=== PATIENT | female | born 1955 | race Caucasian/White ===

== ENCOUNTER 2020-02-29 12:39 | Emergency (ER) | payer OTHER, SELFPAY ==
--- NOTE | ~2020-02-29 | US_ITS ---
EXAMINATION: US venous doppler LE RT DATE: 02/29/2020 13:49 INDICATION: Right lower limb pain. TECHNIQUE: Grayscale ultrasound images without and with compression and Doppler ultrasound images of the right lower extremity veins were obtained. COMPARISON: None. FINDINGS: The visualized portions of right common femoral vein, profunda (deep) femoral vein, femoral vein, pop liteal vein, peroneal veins, posterior tibial veins, and greater saphenous vein outflow are patent. IMPRESSION: 1. No deep venous thrombosis. Reviewed, dictated and finalized at location A.
[2020-02-29 12:47] VITALS: BP 146/70; PULSE 84; RESP 18; TEMP 36.6; O2SAT 100
--- NOTE | 2020-02-29 13:11 | PC.NURSE ---
ERP at bedside.
--- NOTE | 2020-02-29 13:22 | ED.GENADULT ---
HPI - General Adult General Chief complaint: Extremity Injury, Lower <RENALDO Calle Last Filed: 02/29/20 14:32> Stated complaint: right knee injury <RENALDO Calle Last Filed: 02/29/20 14:32> Time Seen by Provider: 02/29/20 12:55 <RENALDO Calle Last Filed: 02/29/20 14:32> Source: patient <RENALDO Calle Last Filed: 02/29/20 14:32> Mode of arrival: ambulatory <RENALDO Calle Last Filed: 02/29/20 14:32> Limitations: no limitations <RENALDO Calle Last Filed: 02/29/20 14:32> History of Present Illness HPI narrative: Patient is a 64-year-old female who presents with right leg pain noting that she has sat in the chair with the back of her right knee against a metal bar and then has since had moderate aching pain at this location that radiates up and down the leg patient denies other injury or trauma or similar occurrence in the past patient on arrival to emergency department is in no distress and presents per ambulance has not had anything for her symptoms denies reticular symptoms or paresthesias <RENALDO Calle Last Filed: 02/29/20 14:32> Related Data Home medications: Home Medications Medication Instructions Recorded Confirmed aspirin 81 mg chewable tablet 81 mg PO DAILY 10/14/19 irbesartan 75 mg tablet 75 mg PO DAILY 10/14/19 linaclotide 145 mcg capsule 145 mcg PO DAILY 10/14/19 nortriptyline 25 mg capsule 25 mg PO DAILY 10/14/19 Ca cmb no.5-[id number]-aloe tablet PO 02/29/20 [Vitamin D-3 with Aloe] buspirone 7.5 mg PO BID 02/29/20 glucos sul [id number]-[id number]-C-Mn cap PO 02/29/20 [Glucosamine Chondroitin] prednisone 10 mg PO BID 02/29/20 <RENALDO Calle Last Filed: 02/29/20 14:32> Allergies/adverse reactions: Allergies Allergy/AdvReac Type Severity Reaction Status Date / Time methylprednisolone Allergy Mild Flushing Verified 01/07/17 11:01 No Known Allergies Allergy Mild Verified 01/08/19 18:33 hyoscyamine Allergy Unknown Verified 07/26/10 11:56 <Finn Willard PA-C - Last Filed: 02/29/20 14:32> Review of Systems Review of Systems: All systems reviewed & are unremarkable except as noted in HPI and below <Finn Willard PA-C - Last Filed: 02/29/20 14:32> PMFSH Past Medical History Medical History: Medical History Left hip pain Numbness of tongue Wellness examination <Finn Willard PA-C - Last Filed: 02/29/20 14:32> Family History Family History: Family History (Updated 04/13/16 @ 23:19 by DOCTOR UNKNOWN) Sibling Family history of thyroid disease Hypertension Family history of coronary artery disease Mother Hypertension Family history of heart disease in male family member before age 55 Family history of coronary artery disease Father Family history of chronic obstructive pulmonary disease Malignant neoplasm of prostate Family history of diabetes mellitus in first degree relative Hypertension Family history of coronary artery disease Other Family history of cardiovascular disease <Finn Willard PA-C - Last Filed: 02/29/20 14:32> Social History Social History: Social History Smoking status: Never smoker Alcohol intake: never Gender identity (if verbalized by the patient): Female <Finn Willard PA-C - Last Filed: 02/29/20 14:32> Exam Narrative: Exam Narrative: GENERAL: Well-appearing, well-nourished, and in no acute distress. HEAD: Normocephalic, atraumatic. EYES: PERRLA and EOMI. ENT: Nares clear, no rhinorrhea or epistaxis. Mucous membranes moist. EXTREMITIES: Normal range of motion. No edema. Tenderness of the posterior right knee no deformities noted SKIN: Warm, dry, no rash. NEURO: No focal deficits. Alert and oriented x3. Neurovascularly intact. Capillary refill less t
[2020-02-29 14:43] VITALS: BP 138/75; PULSE 78; RESP 16; O2SAT 97
== END 2020-02-29 14:44 | disposition home or self-care (01) ==
PROVIDERS: Emergency Provider Emergency Medicine; PCP Family Medicine
DX: M79.604 Pain in right leg (principal)
CPT/HCPCS: 93971; 99284

== ENCOUNTER → 2021-01-13 06:59 | Outpatient (CLI) | payer MEDICARE, SELFPAY ==
[2021-01-13 19:12] LABS: SARS-CoV-2 RNA PCR Positive
== END ==
PROVIDERS: PCP Family Medicine
DX: U07.1 COVID-19 (principal)
CPT/HCPCS: C9803; U0003; U0005

== ENCOUNTER 2021-01-14 08:03 | Inpatient (IN) | payer MEDICARE, SELFPAY ==
[2021-01-14] VITALS (26 sets, daily range): BP systolic 88–139; BP diastolic 35–81; PULSE 76–112; RESP 18–20; TEMP 36.2–39.4; O2SAT 90–97; BMI 39.9
--- NOTE | ~2021-01-14 | CT_ITS ---
EXAMINATION: CT abdomen pelvis w con DATE: 01/14/2021 10:00 INDICATION: Elevated serum lipase. Nausea, diarrhea. Cough. TECHNIQUE: Computed tomography (CT) of the abdomen and pelvis was performed with 100 cc Omnipaque 350 intravenous contrast. Automated exposure control and iterative reconstruction technique were employe d. Exam dose: 1628.10 mGy-cm total exam DLP. COMPARISON: 01/19/2012 CT abdomen pelvis FINDINGS: There are extensive patchy bilateral groundglass pulmonary infiltrates involving all lobes. Diffuse hepatic steatosis. Status post cholecystectomy. No space-occupying mass lesion of the liver, spleen, pancreas, and adrenal glands. 7 mm upper pole le ft renal cyst. The kidneys are otherwise unremarkable. No urinary tract calculus or hydroureteronephr osis. Normal caliber of the abdominal aorta. No intraperitoneal or retroperitoneal or pelvic mass lesion or adenopathy or ascites. The uterus, adnexal areas and urinary bladder are unremarkable. Diverticulosis of the sigmoid colon; no CT evidence of diverticulitis. There are fluid levels of the colon, an abnormal finding, consistent with clinical presentation of diarrhea. No bowel obstruction, bowel wall thickening, pneumatosis or intraperitoneal free air. Fat-containing umbilical hernia. No suspicious osteolytic or osteoblastic lesions. Transitional lumbosacral vertebra. IMPRESSION: Hepatic steatosis Status post cholecystectomy Diverticulosis of the sigmoid colon; no CT evidence of diverticulitis Reviewed, dictated and finalized at [facility]. Reviewed, dictated and finalized at location A.
--- NOTE | ~2021-01-14 | XR_ITS ---
XR chest 1V portable DATE: 01/14/2021 08:40 INDICATION: Cough. Nausea, diarrhea. TECHNIQUE: Portable AP chest on 01/14/2021 at 0838 hours COMPARISON: 12/29/2015 PA and lateral chest FINDINGS: There are patchy bilateral pulmonary infiltrates primarily in the mid and lower lung zones suggesting bilateral pneumonia. Cardiomegaly. No pleural effusion is evident. Diffuse osteopenia. Degenerative spurring of the thoracic spine. IMPRESSION: Patchy consolidating infiltrates involving particularly the mid and lower lung zones, mos t consistent with bilateral pneumonia Reviewed, dictated and finalized at location A. IMPRESSION: Patchy consolidating infiltrates involving particularly the mid and lower lung zones, most consistent with bilateral pneumonia
--- NOTE | 2021-01-14 08:24 | ECG_ITS ---
Measurements Intervals [place] Rate: 89 P: 68 PA: 157 QRS: 5 QRSD: 90 T: 50 QT: 355 QTc: 433 Interpretive Statements SINUS RHYTHM LOW QRS VOLTAGE IN PRECORDIAL LEADS BORDERLINE ECG Electronically Signed On 01-14-2021 17:02:38 CDT by Antonio Schwartz D.O.
--- NOTE | 2021-01-14 08:36 | ED.GENADULT ---
HPI - General Adult General Chief complaint: Abdominal Pain Stated complaint: nausea/vomiting/gas Time Seen by Provider: 01/14/21 08:10 Source: patient, RN notes reviewed and old records reviewed Mode of arrival: ambulatory Limitations: no limitations History of Present Illness HPI narrative: This is a 65 year old female who presents for evaluation of nausea, cough, fatigue and diarrhea. She states she started having symptoms at least 14 days ago. She reports having nonbloody diarrhea just about daily. She states it is decreasing in amount. She reports nausea and dry heaves, but she denies abdominal pain or fever. She has a nonproductive cough but denies chest pain or sob. She denies lightheadedness or dizziness. She has fatigue. She was tested for covid yesterday and it has returned back today positive. she states she came to ER because her symptoms are not getting better. She denies taking antibiotics recently. Related Data Home Medications Medication Instructions Recorded Confirmed aspirin 81 mg chewable tablet 81 mg PO DAILY 10/14/19 01/14/21 Ca cmb no.0-I5-H-[id number]-G37-aloe 1 tablet PO DAILY 02/29/20 01/14/21 [Vitamin D-3 with Aloe] glucos sul 0KZj-[id number]-[id number]-C-Mn 1 cap PO BID 02/29/20 01/14/21 [Glucosamine Chondroitin] ascorbic acid (vitamin C) 1 g PO DAILY 01/14/21 01/14/21 irbesartan 37.5 mg PO DAILY 01/14/21 01/14/21 zinc sulfate 50 mg PO DAILY 01/14/21 01/14/21 Allergies Allergy/AdvReac Type Severity Reaction Status Date / Time hyoscyamine Allergy Mild nausea Verified 01/14/21 12:27 methylprednisolone Allergy Mild Flushing Verified 01/14/21 12:27 Review of Systems Review of Systems: All systems reviewed & are unremarkable except as noted in HPI and below PMFSH Past Medical History Medical History (Updated 01/14/21 @ 17:46 by Carla Frank MD) Anxiety Depression Essential hypertension Fatty liver History of MRSA infection Skin and soft tissue infection. Impaired fasting glucose Recent hemoglobin A1c of 5.4%. Irritable bowel syndrome Osteoarthritis Recurrent urinary tract infection Shingles (~2014) Surgical History Surgical History (Updated 01/14/21 @ 16:25 by Farheen Fofana PA-C) History of cardiac catheterization (~2004) Clear coronary arteries per patient report. History of cholecystectomy History of tonsillectomy Family History Family History Sibling Family history of thyroid disease Hypertension Family history of coronary artery disease Mother Hypertension Family history of heart disease in male family member before age 55 Family history of coronary artery disease Father Family history of chronic obstructive pulmonary disease Malignant neoplasm of prostate Family history of diabetes mellitus in first degree relative Hypertension Family history of coronary artery disease Other Family history of cardiovascular disease Social History Social History (Updated 01/14/21 @ 16:23 by Farheen Fofana PA-C) Social History: The patient is and lives with her in [place]. Lifelong nonsmoker. No alcohol or illicit substance abuse. She designates her Uriah as her surrogate decision maker and she wishes to be a full code. Exam Const: General: no acute distress, alert and ill appearing Orientation/consciousness: patient oriented x3 Eyes: EOM: EOMs intact bilaterally Chest: Chest palpation & inspection: normal inspection of the chest Resp: Effort & Inspection: normal respiratory effort and no retractions Auscultation: clear to auscultation bilaterally Cardio: Rate: regular rate Rhythm: regular rhythm Heart sounds: no murmurs GI: GI Palp: Yes Soft to palpation, No Tenderness to palpation present (GI) and No Guarding due to palpation present (GI) Auscultation: normal bowel sounds Neuro: General: patient oriented x3, moves all extremities and CN's II-X
[2021-01-14 08:38] LABS: Basophils Percent Auto 0.3 % (0.2-1.2); Hematocrit 45.2 % (37.0-47.0); Hemoglobin 14.8 g/dL (12.0-15.0); Immature Granulocyte Absolute 0.04 K/mm3 (0.00-0.031); Immature Granulocyte Percent A 0.6 % (0-0.5); Lymphocytes Absolute Auto 1.61 K/mm3 (0.9-3.2); Lymphocytes Percent Auto 23.1 % (18.3-44.2); Mean Corpuscular HGB Conc 32.7 g/dl (32-36); Mean Corpuscular Hemoglobin 29.8 pg (26-34); Mean Corpuscular Volume 91.1 fl (80-100); Mean Platelet Volume 9.5 fl (7.4-10.4); Monocytes Absolute Auto 0.4 K/mm3 (0.1-0.6); Monocytes Percent Auto 5.7 % (2.6-8.5); Neutrophils Absolute Auto 4.9 K/mm3 (1.3-6.7); Neutrophils Percent Auto 70.3 % (45.5-73.1); Platelet Count Result 229 k/mm3 (150-375); Red Blood Count 4.96 M/mm3 (4.2-5.4); Red Cell Distribution Width 14.1 % (11.5-14.5)
[2021-01-14] MEDS: ONDANSETRON INJ 4 MG/2 ML VIAL IV PUSH (08:41)
[2021-01-14] MEDS: LACTATED RINGERS 1,000 ML 999 ML IV CONT ×2 (08:42→09:15)
[2021-01-14 08:48] LABS: Alanine Aminotransferase 64 U/L (4-35); Albumin Level 4.2 g/dL (3.5-5.1); Alkaline Phosphatase 57 U/L (38-126); Anion Gap 3 mmol/L (8-16); Aspartate Amino Transferase 110 U/L (14-36); Bilirubin,Total 0.5 mg/dL (0.2-1.3); Blood Urea Nitrogen 12 mg/dL (7-17); Calcium 8.5 mg/dL (8.4-10.2); Carbon Dioxide 30 mmol/L (22-30); Chloride 102 mmol/L (98-107); Estimated CRCL calculation 55 ml/min; Estimated Glomerular Filt Rate 56; Glucose 126 mg/dL (65-105); Lipase 693 U/L (23-300); Sodium 135 mmol/L (137-145)
--- NOTE | 2021-01-14 11:13 | PC.NURSE ---
pt ambulated in room, c/o weakness. pulse ox 82-92%.
[2021-01-14 11:54] LABS: INR 0.9; Prothrombin Time 13.1 Seconds (11.1-14.7)
[2021-01-14] MEDS: SODIUM CHLORIDE 0.9% IV 1,000 ML 100 ML IV CONT ×2 (12:10→20:30)
--- NOTE | 2021-01-14 12:13 | ADMGEN ---
This patient, Estella Mercado, was admitted to [address] [place] [address] Room 325-01. Patient/family oriented to hospital policies and general routines including ID bracelet, bed and alarms, visiting hours, pain management, procedures, bathroom and other care routines, personal items, smoking policy, room service/diet, and visiting hours. Information on how to activate the Rapid Response Team has been discussed. Patient/Family are encouraged to report perceived risks to care and to ask questions if they do not understand what they are told or what they should do.
[2021-01-14] MEDS: REMDESIVIR 200 MG/NS 250 ML 200 MG/250 ML BAG 250 MG IVPB (14:32)
--- NOTE | 2021-01-14 16:00 | PM.IMHP ---
H&P: HPI History of Present Illness Date/Time: 01/14/21 16:00 Chief Complaint: Multiple complaints. Narrative: This is a 65-year-old female with hypertension, GERD, depression, and irritable bowel syndrome presented to the emergency department earlier today via private vehicle from home with multiple complaints. She has not been feeling well for 10 or more days with multiple symptoms including fatigue, nausea, decreased appetite, dry heaves, diarrhea, and nonproductive cough. More recently she started to run a fever, almost up to 103? for which she has been taking Tylenol at home. It is my understanding that she was exposed to COVID-19 on Saturday and she was found to be positive for such after being tested yesterday. In the emergency department today she was found to have extensive bilateral infiltrates, likely due to COVID pneumonia, and she also appears dehydrated. At rest she has no oxygen requirement however she reportedly had a low SpO2 with ambulation and she is being admitted in this setting. After receiving IV fluids and since she has defervesced she is feeling quite a bit better. She denies headache, sinus congestion, rhinorrhea, otalgia, odynophagia, anosmia, chest pain, pleuritic pain, shortness of breath, abdominal pain, and dysuria. Review of Systems Review of Systems: Narrative: Twelve systems were reviewed with pertinent positives and negatives as per HPI. No syncope or near syncope. She denies chest in pleuritic pain. No orthopnea, PND, or lower extremity edema. She is having about 4 to 5 loose stools a day but that seems to have tapered off over the past couple of days. Her appetite remains poor. She has had ?issues with my taste buds? for many years and that has not changed. No dysuria. Except as documented, all other systems were reviewed and are negative. [facility] Past Medical History Medical History Anxiety Depression Essential hypertension Fatty liver History of MRSA infection Skin and soft tissue infection. Impaired fasting glucose Recent hemoglobin A1c of 5.4%. Irritable bowel syndrome Osteoarthritis Recurrent urinary tract infection Shingles (~2014) Surgical History Surgical History History of cardiac catheterization (~2004) Clear coronary arteries per patient report. History of cholecystectomy History of tonsillectomy Family History Family History Sibling Family history of thyroid disease Hypertension Family history of coronary artery disease Mother Hypertension Family history of heart disease in male family member before age 55 Family history of coronary artery disease Father Family history of chronic obstructive pulmonary disease Malignant neoplasm of prostate Family history of diabetes mellitus in first degree relative Hypertension Family history of coronary artery disease Other Family history of cardiovascular disease Social History Social History Social History: The patient is and lives with her in [place]. Lifelong nonsmoker. No alcohol or illicit substance abuse. She designates her Uriah as her surrogate decision maker and she wishes to be a full code. Meds Home Medications and Allergies Home Medications Medication Instructions Recorded Confirmed Type aspirin 81 mg chewable tablet 81 mg PO DAILY 10/14/19 01/14/21 History Ca cmb no.8-L4-L-5-US-H29-aloe 1 tablet PO DAILY 02/29/20 01/14/21 History [Vitamin D-3 with Aloe] glucos sul [id number]-C-Mn 1 cap PO BID 02/29/20 01/14/21 History [Glucosamine Chondroitin] ibuprofen [IBU] 600 mg PO QID PRN #7 tablet 02/29/20 01/14/21 Rx buspirone 7.5 mg tablet 7.5 mg PO BID #180 tablet 04/20/20 01/14/21 Rx linaclotide 145 mcg capsule 145 mcg PO D
[2021-01-14] MEDS: busPIRone HCL 2.5 MG TABLET PO (18:10)
[2021-01-14] MEDS: busPIRone HCL 5 MG TABLET PO (18:10)
[2021-01-14] MEDS: IBUPROFEN 600 MG TABLET PO (18:44)
[2021-01-14] MEDS: FAMOTIDINE 20 MG TABLET PO (20:30)
[2021-01-15] VITALS (14 sets, daily range): BP systolic 101–136; BP diastolic 54–66; PULSE 76–98; RESP 18–22; TEMP 36.2–37.7; O2SAT 87–93
[2021-01-15] MEDS: ONDANSETRON INJ 4 MG/2 ML VIAL IV PUSH ×2 (00:21→08:34)
[2021-01-15] MEDS: NORTRIPTYLINE HCL 25 MG CAPSULE PO ×2 (01:37→21:20)
[2021-01-15 05:57] LABS: Basophils Percent Auto 0.2 % (0.2-1.2); Hematocrit 39.1 % (37.0-47.0); Hemoglobin 12.7 g/dL (12.0-15.0); Immature Granulocyte Absolute 0.03 K/mm3 (0.00-0.031); Immature Granulocyte Percent A 0.6 % (0-0.5); Lymphocytes Absolute Auto 1.25 K/mm3 (0.9-3.2); Lymphocytes Percent Auto 25.2 % (18.3-44.2); Mean Corpuscular HGB Conc 32.5 g/dl (32-36); Mean Corpuscular Hemoglobin 29.7 pg (26-34); Mean Corpuscular Volume 91.6 fl (80-100); Mean Platelet Volume 9.4 fl (7.4-10.4); Monocytes Absolute Auto 0.4 K/mm3 (0.1-0.6); Monocytes Percent Auto 7.5 % (2.6-8.5); Neutrophils Absolute Auto 3.3 K/mm3 (1.3-6.7); Neutrophils Percent Auto 66.5 % (45.5-73.1); Platelet Count Result 234 k/mm3 (150-375); Red Blood Count 4.27 M/mm3 (4.2-5.4); Red Cell Distribution Width 14.1 % (11.5-14.5)
[2021-01-15 06:07] LABS: Lactate Dehydrogenase 978 U/L (313-618); Magnesium 1.6 mg/dL (1.6-2.3)
[2021-01-15 06:12] LABS: Alanine Aminotransferase 44 U/L (4-35); Alkaline Phosphatase 43 U/L (38-126); Anion Gap 5 mmol/L (8-16); Aspartate Amino Transferase 77 U/L (14-36); Bilirubin,Total 0.4 mg/dL (0.2-1.3); Blood Urea Nitrogen 10 mg/dL (7-17); Carbon Dioxide 26 mmol/L (22-30); Chloride 107 mmol/L (98-107); Estimated CRCL calculation 77 ml/min; Estimated Glomerular Filt Rate > 60; Glucose 74 mg/dL (65-105); Potassium 3.4 mmol/L (3.4-5.0); Sodium 138 mmol/L (137-145)
[2021-01-15 07:04] LABS: Prothrombin Time 13.3 Seconds (11.1-14.7)
[2021-01-15] MEDS: FAMOTIDINE 20 MG TABLET PO ×2 (08:26→21:20)
[2021-01-15] MEDS: SODIUM CHLORIDE 0.9% IV 1,000 ML 100 ML IV CONT (08:26)
[2021-01-15] MEDS: busPIRone HCL 5 MG TABLET PO ×2 (08:27→17:15)
[2021-01-15] MEDS: busPIRone HCL 2.5 MG TABLET PO ×2 (08:27→17:15)
[2021-01-15] MEDS: ASCORBIC ACID 500 MG TABLET 1000 MG PO (08:27)
[2021-01-15] MEDS: DEXAMETHASONE 2 MG TABLET 6 MG PO (08:28)
[2021-01-15] MEDS: ENOXAPARIN 40 MG/0.4 ML SYRINGE SUB-Q (08:29)
[2021-01-15] MEDS: REMDESIVIR 100 MG/NS 250 ML 100 MG/250 ML BAG 250 MG IVPB (10:31)
[2021-01-15] MEDS: ZINC SULFATE 220 MG CAPSULE PO (10:31)
[2021-01-15] MEDS: ASPIRIN 81 MG CHEWABLE TABLET PO (10:31)
--- NOTE | 2021-01-15 12:34 | PM.IMPN ---
Progress Note: A&P Assessment and Plan (1) Pneumonia due to COVID-19 virus: Code(s): U07.1 - COVID-19; J12.82 - Pneumonia due to coronavirus disease 2018 Status: Acute Assessment and Plan: Continue Remdesivir and dexamethasone Continue to monitor (2) Essential hypertension: Code(s): I10 - Essential (primary) hypertension Status: Acute Assessment and Plan: Continue to monitor patient is on irbesartan (3) Gastro-esophageal reflux disease without esophagitis: Code(s): K21.9 - Gastro-esophageal reflux disease without esophagitis Status: Acute Assessment and Plan: Continue PPI Continue cimetidine (4) Depression: Code(s): F32.9 - Major depressive disorder, single episode, unspecified Status: Acute Assessment and Plan: Continue nortriptyline (5) Anxiety: Code(s): F41.9 - Anxiety disorder, unspecified Status: Acute Assessment and Plan: Continue buspirone (6) Fatty liver: Code(s): K76.0 - Fatty (change of) liver, not elsewhere classified Status: Acute Assessment and Plan: Monitor in the outpatient setting (7) Dehydration: Code(s): E86.0 - Dehydration Status: Acute Assessment and Plan: Gentle hydration Additional Plan The patient presents today with a 10+ day history of multiple symptoms as detailed in HPI. She tested positive for COVID-19 yesterday. Imaging today shows extensive bilateral infiltrates felt to be COVID pneumonia and she has been placed in contact, droplet, and airborne isolation. It is my understanding that she was hypoxic with ambulation emergency department however that is not reflected in the chart. She was started on remdesivir and dexamethasone in the emergency department and I am going to continue with this for now despite no oxygen requirement given the length of her illness and the significant infiltrates on imaging. Continue supportive care with cautious IV fluid rehydration and antiemetics as needed. Antihypertensives on hold as her blood pressures have been soft due to dehydration. The rest of her home medications will be reviewed and resumed as appropriate. LFTs are elevated and are likely due to COVID however she does also have hepatic steatosis noted on imaging today. Check hepatitis panel and monitor. Subjective Date/time seen: 01/15/21 12:34 I was feeling sick Review of Systems Review of Systems: All systems reviewed & are unremarkable except as noted in HPI and below Constitutional: Comments: Fevers chills generalized malaise weakness fatigue for 2 weeks or so Musculoskeletal: Comments: Generalize aches and pains Exam Narrative: Exam Narrative: General: Mildly ill-appearing female supine in bed in no distress. Weight: 100.7 kilograms. BMI: 40.0. HEENT: Pupils reactive. Extraocular motions intact. Tacky mucous membranes. Oropharynx is crowded and poorly visualized. Neck: Supple. Exam difficult due to neck circumference and positioning. No obvious JVD. Respiratory: Respirations are even and nonlabored. She is speaking in full sentences. She has coarse crackles heard anteriorly at the flanks. Occasional dry cough during the interview. Cardiovascular: Regular rate and rhythm with S1-S2. Gastrointestinal: Abdomen is soft, obese, nontender, and nondistended with positive bowel sounds. Skin: Warm and dry. No rash or lesions on limited exam. Extremities: No cyanosis, clubbing, or edema. Radial and pedal pulses intact. Neurological: Alert. Cranial nerves 2-12 are grossly intact. No gross focal deficits to casual conversation. Psychiatric: Appropriate mood and affect. Objective Data Vital Signs Vital Signs: Vital Signs - 24 hr 01/14/21 12:39 01/14/21 16:00 01/14/21 16:05 Temperature 97.6 F 102.9 F H Pulse Rate 104 H 93 104 H Respiratory Rate 18 18 18 Blood Pressure 110/65 122/63 120/63 Pulse Oximetry 92 92 91 01/14/21 16:10 01/14/21
[2021-01-15] MEDS: ACETAMINOPHEN 325 MG TABLET 650 MG PO (22:15)
[2021-01-16 03:56] VITALS: BP 117/51; PULSE 70; RESP 18; TEMP 36.6; O2SAT 91
[2021-01-16 06:43] LABS: Alanine Aminotransferase 40 U/L (4-35); Estimated CRCL calculation 105 ml/min; Estimated Glomerular Filt Rate > 60
[2021-01-16 07:37] LABS: Prothrombin Time 14.2 Seconds (11.1-14.7)
[2021-01-16 08:00] VITALS: BP 125/59; PULSE 78; RESP 16; TEMP 36.1; O2SAT 91
[2021-01-16] MEDS: DEXAMETHASONE 2 MG TABLET 6 MG PO (09:05)
[2021-01-16] MEDS: busPIRone HCL 5 MG TABLET PO ×2 (09:05→17:18)
[2021-01-16] MEDS: ASCORBIC ACID 500 MG TABLET 1000 MG PO (09:05)
[2021-01-16] MEDS: FAMOTIDINE 20 MG TABLET PO ×2 (09:05→20:07)
[2021-01-16] MEDS: ZINC SULFATE 220 MG CAPSULE PO (09:06)
[2021-01-16] MEDS: busPIRone HCL 2.5 MG TABLET PO ×2 (09:06→17:18)
[2021-01-16] MEDS: ENOXAPARIN 40 MG/0.4 ML SYRINGE SUB-Q (09:06)
[2021-01-16] MEDS: ASPIRIN 81 MG CHEWABLE TABLET PO (09:06)
[2021-01-16] MEDS: REMDESIVIR 100 MG/NS 250 ML 100 MG/250 ML BAG 250 MG IVPB (10:47)
[2021-01-16 11:10] LABS: Basophils Percent Auto 0.2 % (0.2-1.2); Hematocrit 42.6 % (37.0-47.0); Hemoglobin 13.9 g/dL (12.0-15.0); Immature Granulocyte Absolute 0.03 K/mm3 (0.00-0.031); Immature Granulocyte Percent A 0.5 % (0-0.5); Lymphocytes Percent Auto 19.7 % (18.3-44.2); Mean Corpuscular HGB Conc 32.6 g/dl (32-36); Mean Corpuscular Hemoglobin 29.7 pg (26-34); Monocytes Absolute Auto 0.6 K/mm3 (0.1-0.6); Monocytes Percent Auto 11.3 % (2.6-8.5); Neutrophils Absolute Auto 3.8 K/mm3 (1.3-6.7); Neutrophils Percent Auto 68.3 % (45.5-73.1); Platelet Count Result 295 k/mm3 (150-375); Red Blood Count 4.68 M/mm3 (4.2-5.4); Red Cell Distribution Width 14.2 % (11.5-14.5); White Blood Count 5.6 K/mm3 (4.5-10.0)
[2021-01-16 11:21] VITALS: BMI 39.9
[2021-01-16 11:21] LABS: Anion Gap 8 mmol/L (8-16); Blood Urea Nitrogen 14 mg/dL (7-17); Calcium 8.9 mg/dL (8.4-10.2); Carbon Dioxide 25 mmol/L (22-30); Chloride 108 mmol/L (98-107); Estimated CRCL calculation 89 ml/min; Estimated Glomerular Filt Rate > 60; Glucose 133 mg/dL (65-105); Potassium 3.6 mmol/L (3.4-5.0); Sodium 141 mmol/L (137-145)
--- NOTE | 2021-01-16 12:19 | PM.IMPN ---
Progress Note: A&P Assessment and Plan (1) Pneumonia due to COVID-19 virus: Code(s): U07.1 - COVID-19; J12.82 - Pneumonia due to coronavirus disease 2018 Status: Acute Assessment and Plan: Continue Remdesivir and dexamethasone Continue to monitor Clinically improved (2) Essential hypertension: Code(s): I10 - Essential (primary) hypertension Status: Acute Assessment and Plan: Continue to monitor patient is on irbesartan (3) Gastro-esophageal reflux disease without esophagitis: Code(s): K21.9 - Gastro-esophageal reflux disease without esophagitis Status: Acute Assessment and Plan: Continue PPI Continue cimetidine (4) Depression: Code(s): F32.9 - Major depressive disorder, single episode, unspecified Status: Acute Assessment and Plan: Continue nortriptyline (5) Anxiety: Code(s): F41.9 - Anxiety disorder, unspecified Status: Acute Assessment and Plan: Continue buspirone (6) Fatty liver: Code(s): K76.0 - Fatty (change of) liver, not elsewhere classified Status: Acute Assessment and Plan: Monitor in the outpatient setting (7) Dehydration: Code(s): E86.0 - Dehydration Status: Acute Assessment and Plan: Gentle hydration Additional Plan The patient presents today with a 10+ day history of multiple symptoms as detailed in HPI. She tested positive for COVID-19 yesterday. Imaging today shows extensive bilateral infiltrates felt to be COVID pneumonia and she has been placed in contact, droplet, and airborne isolation. It is my understanding that she was hypoxic with ambulation emergency department however that is not reflected in the chart. She was started on remdesivir and dexamethasone in the emergency department and I am going to continue with this for now despite no oxygen requirement given the length of her illness and the significant infiltrates on imaging. Continue supportive care with cautious IV fluid rehydration and antiemetics as needed. Antihypertensives on hold as her blood pressures have been soft due to dehydration. The rest of her home medications will be reviewed and resumed as appropriate. LFTs are elevated and are likely due to COVID however she does also have hepatic steatosis noted on imaging today. Check hepatitis panel and monitor. Will increase patient activity to out of bed and to sit on the chair more frequent Subjective Date/time seen: 01/16/21 12:19 I feel much better today Review of Systems Review of Systems: All systems reviewed & are unremarkable except as noted in HPI and below Exam Narrative: Exam Narrative: General: Well appearing female supine in bed in no distress. Weight: 100.7 kilograms. BMI: 40.0. HEENT: Pupils reactive. Extraocular motions intact. Tacky mucous membranes. Oropharynx is crowded and poorly visualized. Neck: Supple. Exam difficult due to neck circumference and positioning. No obvious JVD. Respiratory: Respirations are even and nonlabored. She is speaking in full sentences. She has coarse crackles heard anteriorly at the flanks. Occasional dry cough during the interview. Cardiovascular: Regular rate and rhythm with S1-S2. Gastrointestinal: Abdomen is soft, obese, nontender, and nondistended with positive bowel sounds. Skin: Warm and dry. No rash or lesions on limited exam. Extremities: No cyanosis, clubbing, or edema. Radial and pedal pulses intact. Neurological: Alert. Cranial nerves 2-12 are grossly intact. No gross focal deficits to casual conversation. Psychiatric: Appropriate mood and affect. Objective Data Vital Signs Vital Signs: Vital Signs - 24 hr 01/15/21 19:54 01/15/21 20:00 01/15/21 22:20 Temperature 99.3 F 99.2 F Pulse Rate 84 81 Respiratory Rate 20 18 Blood Pressure 109/59 L 110/59 L Pulse Oximetry 90 90 87 L 01/15/21 22:30 01/15/21 23:44 01/16/21 03:56 Temperature 99.2 F 99.0 F 97.8 F P
[2021-01-16] MEDS: ALBUTEROL SULFATE (*SP) INHALER 6 PUFF INHALATION (15:13)
[2021-01-16 16:00] VITALS: BP 111/69; PULSE 81; RESP 18; TEMP 36.2; O2SAT 90
[2021-01-16 16:35] LABS: Add Urine Microscopic? YES; Appearance Urine Cloudy (Clear); Bacteria Urine 1+ /hpf; Bilirubin Urine Negative (Negative); Blood Urine 3+ (Negative); Color Urine Amber (Yellow); Glucose Urine UA Negative (Negative); Ketones Urine Negative (Negative); Leukocyte Esterase Ur 2+ LEU/UL (NEGATIVE); Mucus Urine Heavy /lpf; Nitrate Urine Positive (Negative); Protein Urine 2+ mg/dL (Negative); RBC Urine >75 /hpf (0-2); Specific Grav Ur 1.029 (1.001-1.035); Squamous Epithelial Cell Urine Many /hpf (Few); WBC Urine >75 /hpf (0-3)
--- NOTE | 2021-01-16 17:49 | PC.NURSE ---
called results of u/a to Dr. Caridad negro recieved for rocephine 1 gram q 24 hours.
--- NOTE | 2021-01-16 17:51 | PC.NURSE ---
[address] Mclean reported pt has blood tinged urine order recieved for u/A
[2021-01-16 20:00] VITALS: BP 114/46; PULSE 77; RESP 18; TEMP 36.4; O2SAT 90
[2021-01-16] MEDS: NORTRIPTYLINE HCL 25 MG CAPSULE PO (20:07)
[2021-01-16] MEDS: ONDANSETRON INJ 4 MG/2 ML VIAL IV PUSH (23:08)
[2021-01-17] VITALS (11 sets, daily range): BP systolic 99–139; BP diastolic 46–66; PULSE 70–74; RESP 16–20; TEMP 36.1–36.6; O2SAT 90–94
[2021-01-17 06:01] LABS: Hematocrit 38.6 % (37.0-47.0); Hemoglobin 12.7 g/dL (12.0-15.0); Mean Corpuscular HGB Conc 32.9 g/dl (32-36); Mean Corpuscular Hemoglobin 29.7 pg (26-34); Mean Corpuscular Volume 90.2 fl (80-100); Mean Platelet Volume 9.6 fl (7.4-10.4); Platelet Count Result 357 k/mm3 (150-375); Red Blood Count 4.28 M/mm3 (4.2-5.4); Red Cell Distribution Width 14.2 % (11.5-14.5); White Blood Count 8.6 K/mm3 (4.5-10.0)
[2021-01-17 06:14] LABS: Alanine Aminotransferase 39 U/L (4-35); Estimated CRCL calculation 89 ml/min; Estimated Glomerular Filt Rate > 60
[2021-01-17 06:19] LABS: INR 1.1; Prothrombin Time 14.5 Seconds (11.1-14.7)
[2021-01-17 06:20] LABS: Anion Gap 0 mmol/L (8-16); Blood Urea Nitrogen 19 mg/dL (7-17); Calcium 8.7 mg/dL (8.4-10.2); Carbon Dioxide 32 mmol/L (22-30); Chloride 108 mmol/L (98-107); Estimated CRCL calculation 89 ml/min; Estimated Glomerular Filt Rate > 60; Glucose 127 mg/dL (65-105); Potassium 4.6 mmol/L (3.4-5.0); Sodium 140 mmol/L (137-145)
[2021-01-17 07:56] LABS: Band Neutrophils Percent 1 % (0-6); Eosinophils Absolute Manual 0.08 K/mm3 (0.02-0.5); Eosinophils Percent Manual 1 % (0-4); Monocytes Absolute Manual 0.77 K/mm3 (0.1-0.90); Monocytes Percent Manual 9 % (3-9); Neutrophils Absolute Manual 7.13 K/mm3 (1.7-7.2); Neutrophils Percent Manual 82 % (46-73); Platelet Estimate Adequate (Adequate); Total Cells Counted 100
[2021-01-17] MEDS: DEXAMETHASONE 2 MG TABLET 6 MG PO (08:56)
[2021-01-17] MEDS: busPIRone HCL 5 MG TABLET PO ×2 (08:57→18:11)
[2021-01-17] MEDS: ENOXAPARIN 40 MG/0.4 ML SYRINGE SUB-Q (08:57)
[2021-01-17] MEDS: ASPIRIN 81 MG CHEWABLE TABLET PO (08:57)
[2021-01-17] MEDS: busPIRone HCL 2.5 MG TABLET PO ×2 (08:57→18:11)
[2021-01-17] MEDS: ASCORBIC ACID 500 MG TABLET 1000 MG PO (08:57)
[2021-01-17] MEDS: FAMOTIDINE 20 MG TABLET PO ×2 (08:58→20:45)
[2021-01-17] MEDS: ZINC SULFATE 220 MG CAPSULE PO (08:58)
[2021-01-17] MEDS: REMDESIVIR 100 MG/NS 250 ML 100 MG/250 ML BAG 250 MG IVPB (09:00)
[2021-01-17] MEDS: SODIUM CHLORIDE 0.9% IV 1,000 ML 75 ML IV CONT (12:21)
--- NOTE | 2021-01-17 16:23 | PM.IMPN ---
Progress Note: A&P Assessment and Plan (1) Pneumonia due to COVID-19 virus: Code(s): U07.1 - COVID-19; J12.82 - Pneumonia due to coronavirus disease 2018 Status: Acute Assessment and Plan: Continue Remdesivir and dexamethasone Pt to complete 5 days then to be discharged Pt remains off oxygen since admission States she feels well. (2) Essential hypertension: Code(s): I10 - Essential (primary) hypertension Status: Acute Assessment and Plan: Continue to monitor patient is on irbesartan (3) Gastro-esophageal reflux disease without esophagitis: Code(s): K21.9 - Gastro-esophageal reflux disease without esophagitis Status: Acute Assessment and Plan: Continue PPI Continue cimetidine (4) Depression: Code(s): F32.9 - Major depressive disorder, single episode, unspecified Status: Acute Assessment and Plan: Continue nortriptyline (5) Anxiety: Code(s): F41.9 - Anxiety disorder, unspecified Status: Acute Assessment and Plan: Continue buspirone (6) Fatty liver: Code(s): K76.0 - Fatty (change of) liver, not elsewhere classified Status: Acute Assessment and Plan: Monitor in the outpatient setting (7) Dehydration: Code(s): E86.0 - Dehydration Status: Acute Assessment and Plan: Gentle hydration Additional Plan INTERVAL HISTORY: The patient presents today with a 10+ day history of multiple symptoms as detailed in HPI. She tested positive for COVID-19 yesterday. Imaging today shows extensive bilateral infiltrates felt to be COVID pneumonia and she has been placed in contact, droplet, and airborne isolation. It is my understanding that she was hypoxic with ambulation emergency department however that is not reflected in the chart. She was started on remdesivir and dexamethasone in the emergency department and I am going to continue with this for now despite no oxygen requirement given the length of her illness and the significant infiltrates on imaging. Continue supportive care with cautious IV fluid rehydration and antiemetics as needed. Subjective Date/time seen: 01/17/21 16:23 Interval history: Pt BP is tilting today, fluids started pt admitted with extensive bilateral infiltrates felt to be COVID pneumonia started with RESMEDIVIR IN ED. PT is on RA with no fever, hopeful DC soon Review of Systems Review of Systems: All systems reviewed & are unremarkable except as noted in HPI and below Exam Narrative: Exam Narrative: General: Well appearing female supine in bed in no distress. HEENT: Pupils reactive. Neck: Supple. Exam difficult due to neck circumference and positioning. No obvious JVD. Respiratory: Clear lung ruiz Cardiovascular: Regular rate and rhythm with S1-S2. Gastrointestinal: Abdomen is soft, obese, nontender, and nondistended with positive bowel sounds. Skin: Warm and dry. No rash or lesions on limited exam. Extremities: No cyanosis, clubbing, or edema. Radial and pedal pulses intact. Neurological: Alert. Cranial nerves 2-12 are grossly intact. No gross focal deficits to casual conversation. Psychiatric: Appropriate mood and affect. Objective Data Vital Signs Vital Signs: Vital Signs - 24 hr 01/16/21 20:00 01/17/21 00:00 01/17/21 04:00 Temperature 36.4 C L 36.1 C L 36.2 C L Pulse Rate 77 72 74 Respiratory Rate 18 18 16 Blood Pressure 114/46 L 113/46 L 118/51 L Pulse Oximetry 90 92 91 01/17/21 08:00 01/17/21 08:40 01/17/21 08:41 Temperature 36.6 C Pulse Rate 72 Respiratory Rate 16 Blood Pressure 106/56 L 122/66 99/49 L Pulse Oximetry 90 01/17/21 12:00 01/17/21 12:55 01/17/21 16:00 Temperature 36.6 C 36.3 C L Pulse Rate 70 72 Respiratory Rate 20 20 Blood Pressure 129/56 L 111/50 L Pulse Oximetry 91 91 91 Intake/Output Intake/Output: Intake & Output 01/14/21 01/15/21 01/16/21 01/17/21 23:59 23:59 23:59 23:59 Intake Tot
[2021-01-17] MEDS: NORTRIPTYLINE HCL 25 MG CAPSULE PO (20:45)
[2021-01-18] VITALS: BP 133/50; PULSE 66; RESP 20; TEMP 36.4; O2SAT 90
[2021-01-18] MEDS: SODIUM CHLORIDE 0.9% IV 1,000 ML 75 ML IV CONT (00:41)
[2021-01-18 04:00] VITALS: BP 133/67; PULSE 78; RESP 16; TEMP 36.1; O2SAT 92
[2021-01-18 06:04] LABS: Hematocrit 36.7 % (37.0-47.0); Hemoglobin 12.2 g/dL (12.0-15.0); Mean Corpuscular HGB Conc 33.2 g/dl (32-36); Mean Corpuscular Volume 90.4 fl (80-100); Mean Platelet Volume 9.6 fl (7.4-10.4); Platelet Count Result 378 k/mm3 (150-375); Red Blood Count 4.06 M/mm3 (4.2-5.4); White Blood Count 9.1 K/mm3 (4.5-10.0)
[2021-01-18 06:12] LABS: INR 1.1; Prothrombin Time 15.1 Seconds (11.1-14.7)
[2021-01-18 06:29] LABS: Alanine Aminotransferase 68 U/L (4-35); Anion Gap 4 mmol/L (8-16); Blood Urea Nitrogen 19 mg/dL (7-17); Calcium 8.1 mg/dL (8.4-10.2); Carbon Dioxide 28 mmol/L (22-30); Chloride 108 mmol/L (98-107); Estimated CRCL calculation 105 ml/min; Estimated Glomerular Filt Rate > 60; Glucose 122 mg/dL (65-105); Potassium 4.4 mmol/L (3.4-5.0); Sodium 140 mmol/L (137-145)
[2021-01-18 06:50] LABS: Band Neutrophils Percent 4 % (0-6); Hypochromasia 1+ (NORMAL); Lymphocytes Absolute Manual 0.91 K/mm3 (1.1-4.5); Monocytes Absolute Manual 0.91 K/mm3 (0.1-0.90); Monocytes Percent Manual 10 % (3-9); Neutrophils Absolute Manual 7.28 K/mm3 (1.7-7.2); Neutrophils Percent Manual 76 % (46-73); Platelet Estimate Adequate (Adequate); Total Cells Counted 100
[2021-01-18 08:00] VITALS: BP 137/70; BP 140/65; PULSE 81; RESP 22; TEMP 36.7; O2SAT 92
[2021-01-18 08:05] VITALS: BP 141/60
[2021-01-18 08:10] VITALS: BP 133/74
[2021-01-18] MEDS: busPIRone HCL 2.5 MG TABLET PO (08:56)
[2021-01-18] MEDS: busPIRone HCL 5 MG TABLET PO (08:56)
[2021-01-18] MEDS: ASPIRIN 81 MG CHEWABLE TABLET PO (08:56)
[2021-01-18] MEDS: ENOXAPARIN 40 MG/0.4 ML SYRINGE SUB-Q (08:56)
[2021-01-18] MEDS: DEXAMETHASONE 2 MG TABLET 6 MG PO (08:56)
[2021-01-18] MEDS: ASCORBIC ACID 500 MG TABLET 1000 MG PO (08:56)
[2021-01-18] MEDS: FAMOTIDINE 20 MG TABLET PO (08:57)
[2021-01-18] MEDS: ZINC SULFATE 220 MG CAPSULE PO (08:57)
[2021-01-18] MEDS: REMDESIVIR 100 MG/NS 250 ML 100 MG/250 ML BAG 250 MG IVPB (09:00)
[2021-01-18 12:00] VITALS: BP 137/70; PULSE 79; RESP 20; TEMP 36.7; O2SAT 92
--- NOTE | 2021-01-18 14:22 | PM.DS ---
DS: Admitting Diagnosis Admitting Diagnosis Admitting Diagnosis: Multiple compliants DS: Discharge Diagnosis Discharge Diagnosis (1) Pneumonia due to COVID-19 virus: Code(s): U07.1 - COVID-19; J12.82 - Pneumonia due to coronavirus disease 2019 Status: Acute Assessment and Plan: Pt completed 5 days of Remdesivir and dexamethasone Pt remains off oxygen since admission States she feels well ready for dischrage. (2) Essential hypertension: Code(s): I10 - Essential (primary) hypertension Status: Acute Assessment and Plan: Continue to monitor patient is on irbesartan (3) Gastro-esophageal reflux disease without esophagitis: Code(s): K21.9 - Gastro-esophageal reflux disease without esophagitis Status: Acute Assessment and Plan: Continue cimetidine (4) Depression: Code(s): F32.9 - Major depressive disorder, single episode, unspecified Status: Acute Assessment and Plan: Continue nortriptyline (5) Anxiety: Code(s): F41.9 - Anxiety disorder, unspecified Status: Acute Assessment and Plan: Continue buspirone (6) Fatty liver: Code(s): K76.0 - Fatty (change of) liver, not elsewhere classified Status: Acute Assessment and Plan: Monitor in the outpatient setting (7) Dehydration: Code(s): E86.0 - Dehydration Status: Resolved Assessment and Plan: Gentle hydration with fluids, orthostatic bp is corrected stop fluids DS: Summary Hospital Course Hospital Course: The patient is tested positive for COVID-19 yesterday. Imaging today shows extensive bilateral infiltrates felt to be COVID pneumonia and she has been placed in contact, droplet, and airborne isolation. She was started on remdesivir and dexamethasone in the emergency department and I am going to continue with this for now despite no oxygen requirement given the length of her illness and the significant infiltrates on imaging. Continue supportive care with cautious IV fluid rehydration and antiemetics as needed. Pt did well with 5 days of Remdesivir and dexamethasone. Pt remains off oxygen since admission States she feels well ready for discharge. Time Spent with Patient Time attestation: Total time spent providing and/or coordinating discharge services:40 minutes on day of discharge Exam Narrative: Exam Narrative: General: Well appearing female Neck: Supple. Respiratory: Clear lung ruiz Cardiovascular: Regular rate and rhythm with S1-S2. Gastrointestinal: Abdomen is soft, obese, nontender, and nondistended with positive bowel sounds. Skin: Warm and dry. No rash or lesions on limited exam. Extremities: No cyanosis, clubbing, or edema. Radial and pedal pulses intact. Neurological: Alert. Cranial nerves 2-12 are grossly intact. No gross focal deficits to casual conversation. Psychiatric: Appropriate mood and affect. DS: Data Data Completed and Pending Labs on day of discharge: Labs from last 24 hours 01/18/21 01/18/21 01/18/21 05:53 05:53 05:53 WBC 9.1 RBC 4.06 L Hgb 12.2 Hct 36.7 L MCV 90.4 MCH 30.0 MCHC 33.2 RDW 14.0 Plt Count 378 H MPV 9.6 Immature Gran % (Auto) Not Reportable Neut % (Auto) Not Reportable Lymph % (Auto) Not Reportable Parker % (Auto) Not Reportable Eos % (Auto) Not Reportable Baso % (Auto) Not Reportable Lymph # (Auto) Not Reportable Parker # (Auto) Not Reportable Eos # (Auto) Not Reportable Baso # (Auto) Not Reportable Abs Immat Gran (auto) Not Reportable Absolute Neuts (auto) Not Reportable Absolute Nucleated RBC Not Reportable Total Counted 100 Neutrophils % (Manual) 76 H Band Neutrophils % 4 Lymphocytes % (Manual) 10.0 L Monocytes % (Manual) 10 H Nucleated RBC % Not Reportable Abs Neuts (Manual) 7.28 H Abs Lymphs (Manual) 0.91 L Abs Monocytes (Manual) 0.91 H Platelet Estimate A
== END 2021-01-18 15:00 | disposition home or self-care (01) | DRG 177 ==
LOC: ANHED 08:27 → ANH3MEDSUR 11:36
PROVIDERS: Internal Medicine; Physician Assistant; Admitting Provider Family Medicine; Emergency Provider General Practice; PCP Family Medicine; Visit Provider Family Medicine
DX: U07.1 COVID-19 (principal); J12.82 Pneumonia due to coronavirus disease 2019; I10 Essential (primary) hypertension; K21.9 Gastro-esophageal reflux disease without esophagitis; F32.9 Major depressive disorder, single episode, unspecified; F41.9 Anxiety disorder, unspecified; K76.0 Fatty (change of) liver, not elsewhere classified; E86.0 Dehydration; I95.1 Orthostatic hypotension; K58.9 Irritable bowel syndrome, unspecified; Z79.82 Long term (current) use of aspirin; Z79.899 Other long term (current) drug therapy; Z86.14 Personal history of Methicillin resistant Staphylococcus aureus infection; Z87.440 Personal history of urinary (tract) infections; Z88.8 Allergy status to other drugs, medicaments and biological substances
CPT/HCPCS: 36415; 71045; 74177; 80048; 80053; 81001; 82565; 82728; 83615; 83690; 83735; 84460; 85025; 85610; 93005; 96361; 96365; 96372; 96374; 96375; 96376; 99285; A9270; C9803; G0378; J0131; J0696; J1650; J2405; J7030; J7120; J8540; Q9967; U0003; U0005

== ENCOUNTER → 2021-05-18 03:50 | Outpatient (CLI) | payer MEDICARE, SELFPAY ==
[2021-05-19 18:14] LABS: SARS-CoV-2 RNA PCR Negative
== END ==
PROVIDERS: PCP Family Medicine; Visit Provider Nurse Practitioner Family
DX: Z20.822 Contact with and (suspected) exposure to COVID-19 (principal)
CPT/HCPCS: C9803; U0003; U0005

== ENCOUNTER → 2021-12-19 10:35 | Outpatient (CLI) | payer MEDICARE, SELFPAY ==
--- NOTE | ~2021-12-19 | XR_ITS ---
EXAMINATION: XR femur LT min 2V DATE: 12/19/2021 11:16 INDICATION: Left hip pain. TECHNIQUE: 2 views of left femur were obtained. COMPARISON: None. FINDINGS: Bone alignment is normal. No fracture. Joint spaces are well maintained. There is no knee j oint effusion. IMPRESSION: 1. Normal left femur. Reviewed, dictated and finalized at location A. IMPRESSION: 1. Normal left femur.
--- NOTE | ~2021-12-19 | XR_ITS ---
EXAMINATION: XR hip BI 2V w AP pelvis DATE: 12/19/2021 11:15 INDICATION: Left hip pain. TECHNIQUE: An anteroposterior view of the pelvis and 2 views of each hip were obtained. COMPARISON: None. FINDINGS: There is lumbar levocurvature and mild lower lumbar spondylosis. No fracture. The hip joint spaces are normal. IMPRESSION: 1. Normal hips. Reviewed, dictated and finalized at location A. IMPRESSION: 1. Normal hips.
--- NOTE | ~2021-12-19 | XR_ITS ---
EXAM: XR lumbar spine 2-3V HISTORY: M25.552 - Pain in left hip COMPARISON: X-ray hip bilateral 2 views with AP pelvis performed on the same date. FINDINGS: Cholecystectomy clips. 5 nonrib-bearing lumbar-type vertebral bodies, with intact pedicles . Mild lumbar scoliosis. Minimal anterolisthesis of L3 on L4. Multilevel mild marginal osteophytosis. Multilevel facet arthropathy in the lower lumbar spine. Multilevel disc space narrowing, moderate at L3-4. IMPRESSION: Grade 1 anterolisthesis of L3 on L4. Multilevel degenerative disc disease, moderate at L3-4. Lower antonio mbar facet arthropathy. Reviewed, dictated and finalized at location K. IMPRESSION: Grade 1 anterolisthesis of L3 on L4. Multilevel degenerative disc disease, mode rate at L3-4. Lower lumbar facet arthropathy.
== END ==
PROVIDERS: PCP Family Medicine; Visit Provider Physician Assistant
DX: M79.605 Pain in left leg (principal); M25.552 Pain in left hip; M54.50 Low back pain, unspecified; M43.16 Spondylolisthesis, lumbar region; M51.36 Other intervertebral disc degeneration, lumbar region; M12.88 Other specific arthropathies, not elsewhere classified, other specified site
CPT/HCPCS: 72100; 73521; 73552

== ENCOUNTER 2022-06-18 01:33 | Day surgery (SDC) | payer MEDICARE, SELFPAY ==
[2022-06-07 10:51] VITALS: BMI 39.2
[2022-06-18 12:43] VITALS: BP 153/86; PULSE 101; RESP 18; TEMP 36.1; O2SAT 99; BMI 37.9
[2022-06-18] MEDS: LACTATED RINGERS 1,000 ML 150 ML IV CONT (12:54)
--- NOTE | 2022-06-18 13:03 | WPDANESEPPF ---
Anes - Initial Pre Proc Eval Procedure: Operation Date: 06/18/22 14:00 Proposed Procedures p Esophagogastroduodenoscopy - Luis Daniel Eugene MD Date/Time: 06/18/22 13:03 Surgeon: Luis Daniel Eugene MD Pre Op Diagnosis: GERD Patient Data Age: 67 Gender: F Height: 1.6 m Weight: 97.1 kg Last Vital Signs Temp 97 F L 06/18/22 12:43 Pulse 101 H 06/18/22 12:43 Resp 18 06/18/22 12:43 BP 153/86 H 06/18/22 12:43 Pulse Ox 99 06/18/22 12:43 O2 Del Method Room Air 06/18/22 12:43 Allergies Allergy/AdvReac Type Severity Reaction Status Date / Time No Known Allergies Allergy Verified 06/18/22 12:42 Home Medications Medication Instructions Recorded Confirmed Type aspirin 81 mg chewable tablet 81 mg PO DAILY 10/14/19 06/07/22 History (Michael Chewable Low Dose Aspirin) calcium cmb 1 tablet PO DAILY 02/29/20 06/07/22 History no.[id number]-aloe 120 mg-1,000 unit-10 mg tablet (Vitamin D-3 with Aloe) buspirone 7.5 mg tablet 7.5 mg PO BID #180 tabs 11/08/21 06/07/22 Rx nortriptyline 25 mg capsule 25 mg PO DAILY #90 caps 11/08/21 06/07/22 Rx lorazepam 0.5 mg tablet (Ativan) See Rx Instructions PO DAILY PRN 01/30/22 06/07/22 Rx anxiety #2 tabs irbesartan 75 mg tablet 37.5 mg PO DAILY #45 tabs 04/27/22 06/07/22 Rx pantoprazole 40 mg tablet,delayed 40 mg PO QAM #90 tabs 04/27/22 06/07/22 Rx release (Protonix) sulfamethoxazole 800 1 tablet PO Q12H #6 tabs 04/27/22 06/07/22 Rx mg-trimethoprim 160 mg tablet (Bactrim DS) Patient hx anesthesia problems: none Family hx anesthesia problems: none Results Review: All pre-operative results and documents have been reviewed as part of the pre-operative evaluation. [facility] Past Medical History Medical History Anxiety Depression Essential hypertension Fatty liver History of MRSA infection Skin and soft tissue infection. Impaired fasting glucose Recent hemoglobin A1c of 5.4%. Irritable bowel syndrome Osteoarthritis Recurrent urinary tract infection Shingles (~2014) Surgical History Surgical History History of cardiac catheterization (~2004) Clear coronary arteries per patient report. History of cholecystectomy History of tonsillectomy Family History Family History Sibling Family history of thyroid disease Hypertension Family history of coronary artery disease Mother Hypertension Family history of heart disease in male family member before age 55 Family history of coronary artery disease Father Family history of chronic obstructive pulmonary disease Malignant neoplasm of prostate Family history of diabetes mellitus in first degree relative Hypertension Family history of coronary artery disease Other Family history of cardiovascular disease Social History Social History Social History: The patient is and lives with her in [place]. Lifelong nonsmoker. No alcohol or illicit substance abuse. She designates her Uriah as her surrogate decision maker and she wishes to be a full code. Smoking status: Never smoker Second hand tobacco smoke exposure: No Alcohol intake: never Substance use: never Substance use type: does not use Living arrangements: with family Gender identity (if verbalized by the patient): Female Sexual Orientation (if Verbalized by the Patient): Straight or Heterosexual Spiritual care concerns: No Anes - Eval Final PreProcedure Day of Procedure 06/18/22 13:03 Patient weight: obese Heart: regular rate and rhythm Lungs: clear to auscultation Airway: Mallampati scale class II Neurological: alert and oriented Last oral intake: >/= 8 hours ASA classification: III Emergent: no Anesthetic plan: proceed
--- NOTE | 2022-06-18 13:29 | PM.HPGS ---
History of Present Illness History of Present Illness Consent: Risks, benefits, and alternatives have been discussed and questions answered. Patient agrees to proceed with procedure. Chief complaint: GERD Narrative: Estella Mercado is a 67 year old female with severe epigastric pain late April, had egd but years ago. Review of Systems Constitutional: Constitutional: Denies headache(s) and Denies weakness Eyes: Eyes: Denies blurry vision ENT: Reports Normal hearing present, Denies headache(s) and Denies neck pain Cardiovascular: Cardiovascular: Denies chest pain and Denies dyspnea Respiratory: Respiratory: Denies dyspnea Gastrointestinal: Gastrointestinal: Reports no additional gastrointestinal complaints Genitourinary: Genitourinary: Denies dysuria Musculoskeletal: Musculoskeletal: Denies neck pain Integumentary/Breasts: Skin/Breast: Denies dry skin Neurologic: Reports Normal hearing present, Denies headache(s) and Denies weakness Psychiatric: Psychiatric: Denies anxiety Endocrine: Endocrine: Denies change in body appearance Hematologic/Lymphatic: Hematologic/Lymphatic: Denies easy bleeding Allergic/Immunologic: Allergic/Immunologic: Denies urticaria PMFSH Past Medical History Medical History (Updated 06/18/22 @ 13:30 by Luis Daniel Eugene MD) Anxiety Depression Epigastric pain Essential hypertension Fatty liver History of MRSA infection Skin and soft tissue infection. Impaired fasting glucose Recent hemoglobin A1c of 5.4%. Irritable bowel syndrome Osteoarthritis Recurrent urinary tract infection Shingles (~2014) Surgical History Surgical History History of cardiac catheterization (~2004) Clear coronary arteries per patient report. History of cholecystectomy History of tonsillectomy Family History Family History Sibling Family history of thyroid disease Hypertension Family history of coronary artery disease Mother Hypertension Family history of heart disease in male family member before age 55 Family history of coronary artery disease Father Family history of chronic obstructive pulmonary disease Malignant neoplasm of prostate Family history of diabetes mellitus in first degree relative Hypertension Family history of coronary artery disease Other Family history of cardiovascular disease Social History Social History Social History: The patient is and lives with her in [place]. Lifelong nonsmoker. No alcohol or illicit substance abuse. She designates her Uriah as her surrogate decision maker and she wishes to be a full code. Smoking status: Never smoker Second hand tobacco smoke exposure: No Alcohol intake: never Substance use: never Substance use type: does not use Living arrangements: with family Gender identity (if verbalized by the patient): Female Sexual Orientation (if Verbalized by the Patient): Straight or Heterosexual Spiritual care concerns: No Meds Home Medications and Allergies Home Medications Medication Instructions Recorded Confirmed Type aspirin 81 mg chewable tablet 81 mg PO DAILY 10/14/19 06/07/22 History (Michael Chewable Low Dose Aspirin) calcium cmb 1 tablet PO DAILY 02/29/20 06/07/22 History no.[id number]-[id number] 120 mg-1,000 unit-10 mg tablet (Vitamin D-3 with Aloe) buspirone 7.5 mg tablet 7.5 mg PO BID #180 tabs 11/08/21 06/07/22 Rx nortriptyline 25 mg capsule 25 mg PO DAILY #90 caps 11/08/21 06/07/22 Rx lorazepam 0.5 mg tablet (Ativan) See Rx Instructions PO DAILY PRN 01/30/22 06/07/22 Rx anxiety #2 tabs irbesartan 75 mg tablet 37.5 mg PO DAILY #45 tabs 04/27/22 06/07/22 Rx pantoprazole 40 mg tablet,delayed 40 mg PO QAM #90 tabs 04/27/22 06/07/22 Rx release (Protonix) sulfamethoxazole 800
[2022-06-18 13:45] VITALS: BP 123/58; PULSE 90; RESP 25; O2SAT 96
[2022-06-18 13:55] VITALS: BP 108/44; PULSE 87; RESP 24; O2SAT 97
[2022-06-18 13:59] VITALS: BP 130/66
[2022-06-18 14:05] VITALS: BP 134/70; PULSE 80; RESP 24; O2SAT 96
== END 2022-06-18 14:19 | disposition home or self-care (01) ==
PROVIDERS: PCP Family Medicine; Visit Provider Internal Medicine Gastroenterology
PROC: 0DJ08ZZ Inspection of Upper Intestinal Tract, Via Natural or Artificial Opening Endoscopic (ICD-10-PCS; CPT 43235; principal; 2022-06-18 14:00)
DX: R10.13 Epigastric pain (principal); K44.9 Diaphragmatic hernia without obstruction or gangrene; K29.50 Unspecified chronic gastritis without bleeding; F41.9 Anxiety disorder, unspecified; F32.A Depression, unspecified; I10 Essential (primary) hypertension; K76.0 Fatty (change of) liver, not elsewhere classified; R73.02 Impaired glucose tolerance (oral); K58.9 Irritable bowel syndrome, unspecified; M19.90 Unspecified osteoarthritis, unspecified site; Z79.82 Long term (current) use of aspirin; E66.9 Obesity, unspecified; Z68.37 Body mass index [BMI] 37.0-37.9, adult
CPT/HCPCS: 43239; 88305; 88342; J2704; J7120

== ENCOUNTER → 2022-08-10 10:49 | Outpatient (CLI) | payer MEDICARE, SELFPAY ==
--- NOTE | ~2022-08-10 | MM_ITS ---
EXAMINATION: MM screening [facility] BI w jayne HISTORY: Screening mammogram TECHNIQUE: Craniocaudal and mediolateral oblique 3-D tomosynthesis images were obtained and synthetic 2-D images were generated. CAD analysis was submitted and interpreted. COMPARISON: 08/15/2017, 11/04/2012, 01/12/2010 BREAST PARENCHYMAL COMPOSITION: There are scattered areas of fibroglandular density. FINDINGS: No suspicious mass, calcification, or architectural distortion are identified in either phillip ast to suggest malignancy. There has been no suspicious interval change. IMPRESSION: 1. No mammographic evidence of malignancy. 2. Recommend routine screening mammography in one year. BI-RADS Category 1: Negative Reviewed, dictated and finalized at location A. [employer] OPERATOR [employer]
== END ==
PROVIDERS: PCP Family Medicine; Visit Provider Physician Assistant
DX: Z12.31 Encounter for screening mammogram for malignant neoplasm of breast (principal)
CPT/HCPCS: 77063; 77067

== ENCOUNTER 2022-10-11 09:25 | Outpatient (CLI) | payer MEDICARE, SELFPAY ==
--- NOTE | ~2022-10-11 | NM_ITS ---
EXAM: NM gastric emptying study DATE: 10/11/2022 14:17 INDICATION: Epigastric pain and belching after eating TECHNIQUE: A gastric emptying study was performed using the methodology of Renay PANDYA, et al. J Nucl Med 2007; 48:568-572. The patient was given a meal consisting of 2 scrambled eggs labeled with 1.017 mCi Tc-99m sulfur colloid, 2 slices of toast, two packages of jam, and approximately 120 mL of water . Simultaneous anterior and posterior 1-min images of the abdomen were obtained with the patient supi ne at multiple time points over a total period of 4 hours. The geometric mean of anterior and posteri or views was determined, and the percentage retention was calculated for each time point. COMPARISON: None. FINDINGS: Gastric retention of the radiotracer-labeled meal was 44%, 31%, and 6% at the 1-hour, 2-hour, and 4-h our time points, respectively. With this technique, apparent rapid gastric emptying is suggested by < 30% gastric retention at 1 hour. Delayed gastric emptying is defined by gastric retention of >90% at 1 hour, >60% retention at 2 hours, or >10% retention at 4 hours. IMPRESSION: 1. Normal gastric emptying. Reviewed, dictated and finalized at location L. [employer]ER [employer] IMPRESSION: 1. Normal gastric emptying.
== END 2022-10-11 09:26 | disposition home or self-care (01) ==
PROVIDERS: PCP Family Medicine; Visit Provider Nurse Practitioner Family
DX: R10.13 Epigastric pain (principal); R14.2 Eructation
CPT/HCPCS: 78264; A9541

== ENCOUNTER 2023-02-14 08:30 | Day surgery (SDC) | payer MEDICARE, SELFPAY ==
[2023-01-21 08:57] VITALS: BMI 37.8
[2023-01-29 13:32] VITALS: BMI 38.5
--- NOTE | 2023-02-13 17:21 | WPDANESEPPF ---
Anes - Initial Pre Proc Eval Procedure: Operation Date: 02/14/23 10:30 Proposed Procedures p Diagnostic Colonoscopy - Luis Daniel Eugene MD Date/Time: 02/13/23 17:21 Surgeon: Luis Daniel Eugene MD Pre Op Diagnosis: Irritable Bowel Syndrome w/o Diarrhea Patient Data Age: 67 Gender: F Height: 1.59 m Weight: 97 kg Allergies Allergy/AdvReac Type Severity Reaction Status Date / Time No Known Allergies Allergy Verified 02/14/23 09:24 Home Medications Medication Instructions Recorded Confirmed Type aspirin 81 mg chewable tablet 81 mg PO DAILY 10/14/19 02/14/23 History (Michael Chewable Low Dose Aspirin) calcium cmb 1 tablet PO DAILY 02/29/20 02/14/23 History no.[id number]-[id number] 120 mg-1,000 unit-10 mg tablet (Vitamin D-3 with Aloe) buspirone 10 mg tablet 10 mg PO TID #270 tabs 11/29/22 02/14/23 Rx lansoprazole 30 mg capsule,delayed 30 mg PO DAILY 01/29/23 02/14/23 History release nortriptyline 25 mg capsule 25 mg PO DAILY 01/29/23 02/14/23 History Patient hx anesthesia problems: none Family hx anesthesia problems: none Results Review: All pre-operative results and documents have been reviewed as part of the pre-operative evaluation. [facility] Past Medical History Medical History Anxiety Depression Epigastric pain Essential hypertension Fatty liver History of MRSA infection Skin and soft tissue infection. Impaired fasting glucose Recent hemoglobin A1c of 5.4%. Irritable bowel syndrome Osteoarthritis Recurrent urinary tract infection Shingles (~2014) Surgical History Surgical History History of cardiac catheterization (~2004) Clear coronary arteries per patient report. History of cholecystectomy History of tonsillectomy Family History Family History Sibling Family history of thyroid disease Hypertension Family history of coronary artery disease Mother Hypertension Family history of heart disease in male family member before age 55 Family history of coronary artery disease Father Family history of chronic obstructive pulmonary disease Malignant neoplasm of prostate Family history of diabetes mellitus in first degree relative Hypertension Family history of coronary artery disease Other Family history of cardiovascular disease Social History Social History Social History: The patient is and lives with her in [place]. Lifelong nonsmoker. No alcohol or illicit substance abuse. She designates her Uriah as her surrogate decision maker and she wishes to be a full code. Smoking status: Never smoker Second hand tobacco smoke exposure: No Alcohol intake: never Substance use: never Substance use type: does not use Living arrangements: with family Occupation/Education: retired Gender identity (if verbalized by the patient): Female Sexual Orientation (if Verbalized by the Patient): Straight or Heterosexual Spiritual care concerns: No Anes - Eval Final PreProcedure Day of Procedure 02/13/23 17:21 Patient weight: obese Heart: regular rate and rhythm Lungs: clear to auscultation Airway: Mallampati scale class II Neurological: alert and oriented Last oral intake: >/= 8 hours ASA classification: III Emergent: no Anesthetic plan: proceed Anesthesia type and monitoring: general GIVS and standard monitoring Results Review: All pre-operative results and documents have been reviewed as part of the pre-operative evaluation. Informed Consent: The patient's anesthetic plan and its attendant risks and benefits were discussed with the patient/family/POA. Questions were solicited and answers provided to the satisfaction of the patient/family/POA.
[2023-02-14 09:18] VITALS: BMI 36.1
[2023-02-14 09:20] VITALS: BP 153/85; PULSE 97; RESP 16; TEMP 36.4; O2SAT 99
[2023-02-14] MEDS: LACTATED RINGERS 1,000 ML 150 ML IV CONT (09:36)
--- NOTE | 2023-02-14 09:46 | PM.HPGS ---
History of Present Illness History of Present Illness Consent: Risks, benefits, and alternatives have been discussed and questions answered. Patient agrees to proceed with procedure. Chief complaint: Irritable Bowel Syndrome w/o Diarrhea Narrative: Estella Mercado is a 67 year old female with h/i ibs, intermittent llq pain, using linzess now. Last colonoscopy in 2013 Review of Systems Constitutional: Constitutional: Denies headache(s) and Denies weakness Eyes: Eyes: Denies blurry vision ENT: Reports Normal hearing present, Denies headache(s) and Denies neck pain Cardiovascular: Cardiovascular: Denies chest pain and Denies dyspnea Respiratory: Respiratory: Denies dyspnea Gastrointestinal: Gastrointestinal: Reports no additional gastrointestinal complaints Genitourinary: Genitourinary: Denies dysuria Musculoskeletal: Musculoskeletal: Denies neck pain Integumentary/Breasts: Skin/Breast: Denies dry skin Neurologic: Reports Normal hearing present, Denies headache(s) and Denies weakness Psychiatric: Psychiatric: Denies anxiety Endocrine: Endocrine: Denies change in body appearance Hematologic/Lymphatic: Hematologic/Lymphatic: Denies easy bleeding Allergic/Immunologic: Allergic/Immunologic: Denies urticaria PMFSH Past Medical History Medical History Anxiety Depression Epigastric pain Essential hypertension Fatty liver History of MRSA infection Skin and soft tissue infection. Impaired fasting glucose Recent hemoglobin A1c of 5.4%. Irritable bowel syndrome Osteoarthritis Recurrent urinary tract infection Shingles (~2014) Surgical History Surgical History History of cardiac catheterization (~2004) Clear coronary arteries per patient report. History of cholecystectomy History of tonsillectomy Family History Family History Sibling Family history of thyroid disease Hypertension Family history of coronary artery disease Mother Hypertension Family history of heart disease in male family member before age 55 Family history of coronary artery disease Father Family history of chronic obstructive pulmonary disease Malignant neoplasm of prostate Family history of diabetes mellitus in first degree relative Hypertension Family history of coronary artery disease Other Family history of cardiovascular disease Social History Social History Social History: The patient is and lives with her in [place]. Lifelong nonsmoker. No alcohol or illicit substance abuse. She designates her Uriah as her surrogate decision maker and she wishes to be a full code. Smoking status: Never smoker Second hand tobacco smoke exposure: No Alcohol intake: never Substance use: never Substance use type: does not use Living arrangements: with family Occupation/Education: retired Gender identity (if verbalized by the patient): Female Sexual Orientation (if Verbalized by the Patient): Straight or Heterosexual Spiritual care concerns: No Meds Home Medications and Allergies Home Medications Medication Instructions Recorded Confirmed Type aspirin 81 mg chewable tablet 81 mg PO DAILY 10/14/19 02/14/23 History (Michael Chewable Low Dose Aspirin) calcium cmb 1 tablet PO DAILY 02/29/20 02/14/23 History [id number] 120 mg-1,000 unit-10 mg tablet (Vitamin D-3 with Aloe) buspirone 10 mg tablet 10 mg PO TID #270 tabs 11/29/22 02/14/23 Rx lansoprazole 30 mg capsule,delayed 30 mg PO DAILY 01/29/23 02/14/23 History release nortriptyline 25 mg capsule 25 mg PO DAILY 01/29/23 02/14/23 History Allergies Allergy/AdvReac Type Severity Reaction Status Date / Time No Known Allergies Allergy Verified 02/14/23 09:24 Vital Signs
[2023-02-14 10:11] VITALS: BP 129/69; PULSE 86; RESP 16; O2SAT 99
[2023-02-14 10:21] VITALS: BP 111/55; PULSE 85; RESP 18; O2SAT 98
[2023-02-14 10:31] VITALS: BP 110/62; PULSE 82; RESP 20; O2SAT 98
--- NOTE | 2023-02-14 10:37 | WPDANESPN ---
Anes - Prog Note Post-Op Date/Time: 02/14/23 10:37 Cardiovascular status: normal Respiratory status: normal Airway patency: baseline Mental status: baseline Post-Op hydration status: normal Vital Signs: Last Vital Signs Temp 36.4 C L 02/14/23 09:20 Pulse 82 02/14/23 10:31 Resp 20 02/14/23 10:31 BP 110/62 02/14/23 10:31 Pulse Ox 98 02/14/23 10:31 O2 Del Method Room Air 02/14/23 10:31 Pain Score (VAS): 0 I/O: Intake & Output 02/13/23 02/14/23 02/14/23 23:59 07:59 15:59 Intake Total 400 Balance 400 Post-procedural complaints: none Patient Feedback: Patient satisfied with anesthetic care. Other Findings: Patient vital signs back to baseline. Patient denies nausea and vomiting. Patient's pain under control. Patient OK for discharge.
== END 2023-02-14 10:40 | disposition home or self-care (01) ==
PROVIDERS: PCP Family Medicine; Visit Provider Internal Medicine Gastroenterology
PROC: 0DJD8ZZ Inspection of Lower Intestinal Tract, Via Natural or Artificial Opening Endoscopic (ICD-10-PCS; CPT 45378; principal; 2023-02-14 10:30)
DX: Z12.11 Encounter for screening for malignant neoplasm of colon (principal)
CPT/HCPCS: 45378

== ENCOUNTER 2023-07-12 11:35 | Outpatient (CLI) | payer MEDICARE, SELFPAY ==
--- NOTE | ~2023-07-12 | XR_ITS ---
EXAMINATION: XR chest 2V DATE: 07/12/2023 11:54 INDICATION: Cough with recent COVID infection TECHNIQUE: PA and lateral views of the chest were obtained. COMPARISON: Chest radiograph dated 01/14/2021 FINDINGS: The lungs are now clear with no focal airspace opacities, pulmonary edema, pleural effusion or pneumo thorax. The cardiomediastinal silhouette is normal. Cholecystectomy clips in right upper quadrant. Mo derate thoracic spondylosis. IMPRESSION: 1. No acute cardiopulmonary disease. Reviewed, dictated and finalized at location A.
== END 2023-07-12 11:36 | disposition home or self-care (01) ==
PROVIDERS: PCP Family Medicine; Visit Provider Physician Assistant
DX: R05.9 Cough, unspecified (principal)
CPT/HCPCS: 71046

== ENCOUNTER 2025-02-25 12:04 | Outpatient (CLI) | payer MEDICARE, SELFPAY ==
--- OUTSIDE RECORDS SUMMARY | 2025-02-25 12:47 | XMS_ITS | Clinical Summary ---
Author Organization [facility] Address [address] [place] [address] Care Team Providers Care Engineer Fishing Vessel Name Role Phone Cayetano Milan MD Primary Care Provider [phone] Source Comments [facility],non-owned Affiliates and Associated Physician Practices is amultiple site organization consisting of ambulatory clinics and hospital sitesin [place] and [place]. This disclosure is being madepursuant to the Care Everywhere program and may not contain all information available regarding this patient. Last updated 18.[facility] Allergies Active Allergy Reactions Criticality Noted Date Comments Duloxetine Swelling Medium 09/24/2024 Sertraline Swelling Medium 09/24/2024 Medications * Be aware that medications may not be up to date on this document. Alwaysverify current medications with the patient. busPIRone (Buspar) 10 MG tablet Take 1 (one) tablet by mouth 3 times daily 4 Active lansoprazole (Prevacid) 30 MG capsule Take 1 (one) capsule by mouth once daily 4 Active Linzess 72 MCG capsule Take 1 (one) capsule by mouth once daily 4 Active nortriptyline (Pamelor) 25 MG capsule Take 1 (one) capsule by mouth once daily 4 Active aspirin EC (Ecotrin) 81 MG tablet Take 1 (one) tablet by mouth once daily Active VITAMIN D, CHOLECALCIFEROL , PO Take 25 mcg by mouth once daily Active Simethicone (GAS-X PO) Take 1 tablet by mouth as needed Active azelastine (Astelin) 0.1 % nasal spray [place] 2 (two) sprays into each nostril 2 times daily 90 mL 5 Active Additional Information Patient not taking.Reported on 12/17/2024 fluticasone propionate (Flonase) 50 MCG/ACT nasal spray [place] 2 (two) sprays into each nostril once daily as needed Active loratadine (Claritin) 10 MG tablet Take 1 (one) tablet by mouth once daily Active Encounters Date Type Department Care Team Description 12/17/2024 10:45 AM CDT Office Visit [facility] - ENT [address] [place] [phone] Hector Ramirez MD Conductive hearing loss, bilateral (Primary Dx) 12/17/2024 Travel from Last 3 Months Immunizations Immunization Administration Dates Next Due Covid Pfizer primary Monovalent 12+ yr 0.3ml Covid Pfizer primary monoval ent 12+ yr 0.3mL Purple cap 05/09/2021,04/18/2021 INFLUENZA VACCINE, HIGH-DOSE , QUADR. (FLUZONE HIGH-DOSE QUADRIVALENT; 65Y+), 0.7 ML (HD-IIV4) 07/31/2020 Zoster Hzv Vacc Recombinant Inj Im 01/27/2024 Social History Tobacco Use Types Packs/Day Years Used Date Smoking Tobacco: Never Smokeless Tobacco: Never Tobacco Cessation:Counseling Given: Not Answered Alcohol Use Standard Drinks/Week Comments Not Currently 0 (1 standard drink = 0.6 oz pur e alcohol) Comments Unknown Sex and Gender Information Value Date Recorded Sex Assigned at Not on file Legal Sex Female 1:38 PM CDT Gender Identity Not on file Sexual Orientation Not on file Last Filed Vital Signs Vital Sign Reading Time Taken Comments Blood Pressure 126/73 12/17/2024 10:18 AM CDT Pulse 93 12/17/2024 10:18 AM CDT Temperature - - Respiratory Rate - - Oxygen Saturation - - Inhaled Oxygen Concentration - - Weight 94.5 kg (208 lb 6.4 oz) 12/17/2024 10:18 AM CDT Height 158.8 cm (5' 2.5) 12/17/2024 10:18 AM CD T Body Mass Index 37.51 12/17/2024 10:18 AM CDT Plan of Treatment Upcoming Encounters Date Type Department Care Team ( Contact Info) Description 03/29/2025 10:30 AM CDT Testing Visit [facility] - ENT [address] [place] [phone] Tommy Davis, PhD [address] [place] [address] [place] [address] 03/29/2025 10:45 AM CDT Office Visit [facility] - ENT [address] [place], [place] [phone] Hector Ramirez MD [address] [place] [address] [address] [place] [address] Health Maintenance Due Date Last Done Comments BONE DENSITY TESTING 1955 COLOGUARD (AGES 45-75) - COL ON CA SCREENING 1955 COLON MONITORING 1955 COLONOSCOPY - COLON CA SCREENING 1955 CT COLONOGRAPHY - COLON CA SCREENING 1955 Colorectal Cancer Screening 1955 FIT - COLON CA SCREENING 1955 FLEX SIG - COLON CA SCREENING 1955 LIPID TESTING 1955 MAMMOGRAM 1955 HEPATITIS C SCREENING 04/25/1973 DTAP/TDAP/TD VACCINES (1 - Tdap) 1974 PNEUMOCOCCAL VACCINE 50+ (1 of 1 - PCV) 2005 ZOSTER VACCINE (2 of 2) 03/23/2024 01/27/2024 COVID-19 VACCINE (4 - 2023-2 5 season) 2024 10/11/2021, 05/09/2021, 04/18/2021 DEPRESSION SCREENING 09/16/2024 MEDICARE AWV CALENDAR YEAR 2024 SCREENING FOR DIABETES 09/24/2024 INFLUENZA VACCINE (Season Ended) 2025 07/31/2020 Respiratory Syncytial Virus (RSV) Vaccine Pt: or over 60 yrs (1 - 1-dose 75+ series) 2030 HEPATITIS B VACCINE Aged Out No longe r eligible based on patient's age to complete this topic HIB VACCINE Aged Out No longer eligi ble based on patient's age to complete this topic HPV VACCINE Aged Out No longer eligi ble based on patient's age to complete this topic MENINGOCOCCAL (Group B) VACCINE SHARED DECISION-MAKING Aged Out No longer eligible based on patient's age to complete this topic MENINGOCOCCAL GROUPS A/C/Y/W VACCINE Aged Out No longer eligible b ased on patient's age to complete this topic Insurance Care Teams Engineer Fishing Vessel Relationship Specialty Start Date End Date Cayetano Milan MD [address] [place] [address] PCP - General Family Medicine 09/22/24
--- OUTSIDE RECORDS SUMMARY | 2025-02-25 12:47 | XMS_ITS | Clinical Summary ---
Author Organization [facility] Address [address] [place] [address] Phone Care Team Providers Care Retail Reset Merchandiser Name Role Phone Cayetano Milan MD Primary Care Provider Allergies No known active allergies Medications busPIRone (BUSPAR) 5 MG Tablet 1 10/25/2017 Active irbesartan (AVAPRO) 75 MG Tablet 2 11/08/2017 Active irbesartan (AVAPRO) 150 MG Tablet 2 10/10/2017 Active LINZESS 145 MCG Capsule 0 11/08/2017 Active Nortriptyline HCl 10 MG/5ML Solution 3 11/08/2017 Active nortriptyline (PAMELOR) 10 MG Capsule 2 10/15/2017 Active pantoprazole (PROTONIX) 40 MG Tablet Delayed Response 5 11/08/2017 Active raNITIdine (ZANTAC) 150 MG Tablet 4 11/08/2017 Active Social History Tobacco Use Types Packs/Day Years Used Date Smoking Tobacco: Never Smokeless Tobacco: Never Alcohol Use Standard Drinks/Week Comments No 0 (1 standard drink = 0.6 oz pur e alcohol) Comments Unknown Sex and Gender Information Value Date Recorded Sex Assigned at Not on file Legal Sex Female 10:29 AM DIRECTOR FINANCIAL SYSTEMS Gender Identity Not on file Sexual Orientation Not on file Last Filed Vital Signs Vital Sign Reading Time Taken Comments Blood Pressure 128/86 11/27/2017 8:55 AM CDT Pulse 85 11/27/2017 8:55 AM CDT Temperature - - Respiratory Rate 16 11/27/2017 8:55 AM CDT Oxygen Saturation 98% 11/27/2017 8:55 AM CDT Inhaled Oxygen Concentration - - Weight 93.4 kg (206 lb) 11/27/2017 8:55 AM CDT Height 158.8 cm (5' 2.5) 11/27/2017 8:55 AM CDT Body Mass Index 37.08 11/27/2017 8:55 AM CDT Plan of Treatment Health Maintenance Due Date Last Done Comments Hepatitis C Virus (HCV) Screening 1955 TdaP Immunization 1955 Cologuard 2000 Colonoscopy 2000 Colorectal Cancer Screening 2000 Immunochemical Fecal Occult Blood 2000 Pneumococcal Immunization (5 0+ years) (1 of 1 - PCV) 2005 Zoster Immunization (1 of 2) 2005 SARS-COV-2 Immunization (3 - season) 2024 05/09/2021, 04/18/2021 Influenza Immunization (Seas on Ended) 2025 Respiratory Syncytial Virus (RSV) Immunization (Adult) (1 - 1-dose 75+ series) 2030 Hepatitis B Immunization Aged Out No longer eligible based on patient's age to complete this topic Human Papillomavirus (HPV) Immunization Aged Out No longer eligible b ased on patient's age to complete this topic Meningococcal Immunization (ACWY) Aged Out No longer eligible b ased on patient's age to complete this topic Rotavirus Immunization Aged Out No lo nger eligible based on patient's age to complete this topic Care Teams Retail Reset Merchandiser Relationship Specialty Start Date End Date Cayetano Milan MD [address] [place] [id number] PCP - General Family Medicine 11/27/17
[2025-02-25 13:00] LABS: Add Urine Microscopic? YES; Appearance Urine Clear (Clear); Bacteria Urine None Seen /hpf; Bilirubin Urine Negative (Negative); Blood Urine Negative (Negative); Color Urine Yellow (Yellow); Glucose Urine UA Negative (Negative); Ketones Urine Negative (Negative); Leukocyte Esterase Ur 1+ LEU/UL (Negative); Need Manual Microscopic Reviewed; Nitrate Urine Negative (Negative); Non Pathogenic Casts 0-2; Protein Urine Negative (Negative); RBC Urine 0-2 /hpf (0-2); Specific Grav Ur 1.024 (1.001-1.035); Squamous Epithelial Cell Urine Occasional /hpf (Few); Urobilinogen Urine 0.2 mg/dL (<2.0); WBC Urine 0-5 /hpf (0-3)
== END 2025-02-25 12:05 | disposition home or self-care (01) ==
PROVIDERS: PCP Family Medicine
DX: R10.2 Pelvic and perineal pain (principal); R35.0 Frequency of micturition
CPT/HCPCS: 81001; 87086

== ENCOUNTER 2025-07-13 10:19 | Outpatient (CLI) | payer MEDICARE, SELFPAY ==
[2025-07-13 11:21] LABS: Need Manual Microscopic Reviewed
[2025-07-13 11:23] LABS: Appearance Urine Turbid (Clear)
--- OUTSIDE RECORDS SUMMARY | 2025-07-13 11:51 | XMS_ITS | Clinical Summary ---
Author Organization [facility] Address [address] [place] [address] Care Team Providers Care Logging Contractor Name Role Phone Cayetano Milan MD Primary Care Provider Source Comments [facility],non-owned Affiliates and Associated Physician Practices is amultiple site organization consisting of ambulatory clinics and hospital sitesin [place], [place], [place] and [place]. This disclosure is being madepursuant to the Care Everywhere program and may not contain all information available regarding this patient. Last updated 18.[facility] Allergies Active Allergy Reactions Criticality Noted Date [...] Active azelastine (Astelin) 0.1 % nasal spray [place] 2 (two) sprays into each nostril 2 times daily 90 mL 5 Active Additional Information Patient not taking.Reported on 03/29/2025 fluticasone propionate (Flonase) 50 MCG/ACT nasal spray [place] 2 (two) sprays into each nostril once daily as needed Active loratadine (Claritin) 10 MG tablet Take 1 (one) tablet by mouth once daily Active Immunizations Immunization Administration Dates Next Due Covid [employer] primary Monovalent 12+ yr 0.3ml Covid Pfizer [...] Sign Reading Time Taken Comments Blood Pressure 140/84 03/29/2025 10:59 AM CDT Pulse 87 03/29/2025 10:59 AM CDT Temperature - - Respiratory Rate - - Oxygen Saturation 97% 03/29/2025 10:59 AM CDT Inhaled Oxygen Concentration - - Weight 94.3 kg (208 lb) 03/29/2025 10:59 AM CDT Height 158.8 cm (5' 2.5) 03/29/2025 10:59 AM CD T Body Mass Index 37.44 03/29/2025 10:59 AM CDT Plan of Treatment Upcoming Encounters Date Type Department Care Team (Late st Contact Info) Description 03/31/2026 10:30 AM CDT Office Visit [facility] - ENT [address] [place] [address] Hector Ramirez MD [address] [place] [address] [address] [place] [address] Health Maintenance Due Date Last Done Comments [...] ZOSTER VACCINE (2 of 2) 03/23/2024 01/27/2024 DEPRESSION SCREENING 09/16/2024 MEDICARE AWV CALENDAR YEAR 2024 SCREENING FOR DIABETES 09/24/2024 COVID-19 VACCINE (4 - 2024-2 6 season) 2025 10/11/2021, 05/09/2021, 04/18/2021 INFLUENZA VACCINE (#1) 2025 07/31/2020 Respiratory Syncytial Virus (RSV) Vaccine [...] patient's age to complete this topic Insurance [facility] MANAGED MEDICARE ADV [facility] MANAGED MEDICARE ADV Care Teams Logging Contractor Relationship Specialty Start Date End Date Cayetano Milan MD [address] [place] [address] PCP - General Family Medicine 09/22/24
--- OUTSIDE RECORDS SUMMARY | 2025-07-13 11:51 | XMS_ITS | Clinical Summary ---
Author Organization [facility] Address [address] [place] [address] Phone Care Team Providers Care Setter Induction Heating Equipment Name Role Phone Cayetano Milan MD Primary [...] on file Legal Sex Female 10:29 AM MACHINE FOLDER Gender Identity Not on file Sexual Orientation [...] 2005 Zoster Immunization (1 of 2) 2005 Influenza Immunization (#1) 2025 SARS-COV-2 Immunization (3 - season) 2025 05/09/2021, 04/18/2021 Respiratory Syncytial Virus (RSV) Immunization (Adult) (1 [...] age to complete this topic Care Teams Setter Induction Heating Equipment Relationship Specialty Start Date End Date Cayetano Milan MD [address] [place] [address] PCP - General Family Medicine 11/27/17
--- OUTSIDE RECORDS SUMMARY | 2025-07-13 11:51 | XMS_ITS | Clinical Summary ---
Author Organization [facility] Address [address] [place] [address] Care Team Providers Care It Architecture Analyst Name Role Phone Cayetano Milan MD Primary Care Provider [phone] Social History Tobacco Use Types Packs/Day Years Used Date Smoking Tobacco: Never Assessed Comments Unknown Sex and Gender Information Value Date Recorded Sex Assigned at Not on file Legal Sex Female 10:48 AM CDT Gender Identity Not on file Sexual Orientation Not on file Plan of Treatment Health Maintenance Due Date Last Done Comments Colorectal Cancer Screening Colonoscopy (10 Years) 1955 Hepatitis C 1973 DTaP, Tdap and Td Vaccines ( 1 - Tdap) 1974 Mammogram Screening 1995 Pneumococcal Vaccine: 50+ Years (1 of 1 - PCV) 2005 Zoster Vaccines (1 of 2) 2005 Annual Medicare Wellness Visit 2020 Dexa Scan (General) 2020 COVID-19 Vaccine (4 - 2024-2 6 season) 2025 10/11/2021, 05/09/2021, 04/18/2021 Influenza Adult (#1) 2025 RSV Immunization or 60+ Years (1 - 1-dose 75+ series) 2030 Hepatitis A Vaccines Aged Out No long er eligible based on patient's age to complete this topic Meningococcal B Vaccine Aged Out No l onger eligible based on patient's age to complete this topic Meningococcal Vaccine Aged Out No shannon peterson eligible based on patient's age to complete this topic RSV Immunizations Under 20 Months Aged Out No longer eligible b ased on patient's age to complete this topic Insurance [facility] MEDIC[facility] Care Teams It Architecture Analyst Relationship Specialty Start Date End Date Cayetano Milan MD [address] [place] [address] PCP - General FAMILY PRACTICE 02/01/22
[2025-07-13 13:19] LABS: Add Urine Microscopic? YES
== END 2025-07-13 10:20 | disposition home or self-care (01) ==
PROVIDERS: PCP Family Medicine; Visit Provider Student in an Organized Health Care Education/Training Program
DX: R30.0 Dysuria (principal); R82.90 Unspecified abnormal findings in urine
CPT/HCPCS: 81001; 81003; 87086